=== PATIENT | female | born 1995 | race Caucasian/White ===

== ENCOUNTER 2020-11-15 11:09 | Emergency (ER) | payer OTHER ==
[~2020-11-15] VITALS: Ht 170.2 cm; Wt 67.1 kg
[2020-11-15 11:20] VITALS: BP 114/66
--- NOTE | 2020-11-15 12:42 | NUR ---
Patient discharged with v/s stable. Written and verbal after care instructions given and explained. Patient alert, oriented and verbalized understanding of instructions. Ambulatory with steady gait. All questions addressed prior to discharge. ID band removed. Patient advised to follow up with PMD. Rx of KEFLEX, MOTRIN given. Patient educated on indication of medication including possible reaction and side effects. Opportunity to ask questions provided and answered. NO IV ACCESS THIS VISIT.
== END 2020-11-15 12:42 | disposition home or self-care (01) ==
LOC: MED 11:09
DX: N61.0 Mastitis without abscess (principal)
CPT/HCPCS: 99283

== ENCOUNTER 2021-09-21 13:19 | Emergency (ER) | payer MEDICAID, OTHER ==
[~2021-09-21] VITALS: Ht 170.2 cm; Wt 79.4 kg
[2021-09-21 13:25] VITALS: BP 149/98
--- NOTE | 2021-09-21 13:44 | NUR ---
26yo f c/o vaginal itching and chills x 3 days. pt with hx of UTI 1 week ago, prescribed with Ciprofloxacin. Pt on day 2 antibiotics. denies fever. denies discharge/foul-smelling odor. Pt stated she is also experincing anal itching as well. Per pt "she feels like something is crawling inside her vagina and anus late at night." Pt stated she has had unprotected sex recently. pmh: none meds: ciprofloxacin day 2 nka
[2021-09-21 14:06] LABS: BASOPHILS # (AUTO) 0.1 K/uL (0.00-0.22); BASOPHILS % (AUTO) 1.5 % (0.0-2.0); EOSINOPHILS # (AUTO) 0.1 K/uL (0-0.4); EOSINOPHILS % (AUTO) 2.2 % (0.0-4.0); HEMATOCRIT 40.9 % (36-48); HEMOGLOBIN 14.3 g/dL (12.0-16.0); LYMPHOCYTES # (AUTO) 1.6 K/uL (2.5-16.5); LYMPHOCYTES % (AUTO) 29.7 % (20.5-51.1); MEAN CORPUSCULAR HEMOGLOBIN 30 pg (27-31); MEAN CORPUSCULAR HGB CONC 35 g/dL (33-37); MEAN CORPUSCULAR VOLUME 84.6 fL (80-94); MONOCYTES # (AUTO) 0.6 K/uL (0.8-1.0); MONOCYTES % (AUTO) 10.7 % (1.7-9.3); NEUTROPHILS % (AUTO) 55.9 % (42.2-75.2); PLATELET COUNT (AUTO) 271 K/uL (140-450); RED BLOOD CELL COUNT(AUTO) 4.84 MIL/uL (4.20-5.40); WHITE BLOOD COUNT (AUTO) 5.4 K/uL (4.8-10.8)
--- NOTE | 2021-09-21 14:31 | NUR ---
Female Rn [facility] accompanied female patient for Pelvic Exam. WET MOUNT AND CULTURE SWAB COLLECTED AND WALKED OVER TO LAB
[2021-09-21 14:35] LABS: ALBUMIN 3.9 g/dL (3.4-5.0); ANION GAP 18.5 (8-16); CARBON DIOXIDE 20.9 mmol/L (21-32); CREATININE 0.9 mg/dL (0.6-1.3); POTASSIUM 3.4 mmol/L (3.5-5.1); TOTAL BILIRUBIN 0.8 mg/dL (0.0-1.0)
[2021-09-21] MEDS ORDERED: METR-435 PO (15:33)
[2021-09-21] MEDS ORDERED: IBUP-1842 PO (15:33)
[2021-09-21 15:53] VITALS: BP 133/77
--- NOTE | 2021-09-21 15:53 | NUR ---
Patient discharged with v/s stable. Written and verbal after care instructions ABOUT VAGINITIS given and explained. Patient alert, oriented and verbalized understanding of instructions. Ambulatory with steady gait. All questions addressed prior to discharge. ID band removed. Patient advised to follow up with PMD. Rx of IBUPROFEN AND METRONIDAZOLE given.
== END 2021-09-21 15:53 | disposition home or self-care (01) ==
LOC: MED 13:19
DX: N76.0 Acute vaginitis (principal); B96.89 Other specified bacterial agents as the cause of diseases classified elsewhere; Z79.2 Long term (current) use of antibiotics
CPT/HCPCS: 36415; 80053; 81002; 81025; 85025; 87070; 87086; 87210; 87491; 99284